=== PATIENT | female | born 1980 | race Caucasian/White ===

== ENCOUNTER 2019-11-21 06:14 | Inpatient (IN) ==
[2019-11-21] MEDS ORDERED: SODIUM CHLORIDE 0.65% NA SOLN 45 ML (OCEAN) PRN (06:16)
[2019-11-21] MEDS ORDERED: BISMUTH SUBSALICYLATE PER ML OMNICELL CHARGE PO PRN (06:16)
[2019-11-21] MEDS ORDERED: MAGNESIUM HYDROXIDE SUSP 30 ML UDC PO PRN (06:16)
[2019-11-21] MEDS ORDERED: ACETAMINOPHEN 325 MG TAB PO PRN (06:16)
[2019-11-21] MEDS ORDERED: POLYETHYLENE (MIRALAX) 17 GM PACK PO SCH (09:00)
[2019-11-21] MEDS ORDERED: CLORAZEPATE DIPOTASSIUM 3.75 MG TAB PO SCH (09:00)
[2019-11-21] MEDS: TOPIRAMATE 100 MG TAB PO SCH ×2 (12:22→21:28)
[2019-11-21] MEDS: lamoTRIgine 100 MG TAB PO SCH ×2 (12:22→21:26)
[2019-11-21] MEDS: CLORAZEPATE DIPOTASSIUM 3.75 MG TAB PO SCH ×2 (12:23→21:53)
[2019-11-21] MEDS: DOCUSATE SODIUM 100 MG CAP PO SCH ×2 (13:29→21:26)
[2019-11-21] MEDS: MAGNESIUM OXIDE 400 MG TAB PO SCH ×2 (13:30→21:28)
[2019-11-21] MEDS: ESCITALOPRAM OXALATE 20 MG TAB PO SCH (13:59)
[2019-11-21] MEDS ORDERED: POLYETHYLENE (MIRALAX) 17 GM PACK PO PRN (15:13)
[2019-11-21] MEDS: PATIENT'S ALLERGY INFO NEEDS ENTERED SCH ×2 (15:59→16:01)
[2019-11-21] MEDS: PATIENT'S HEIGHT AND/OR WEIGHT NEEDED SCH ×2 (15:59→16:00)
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
[2019-11-21] MEDS: LURASIDONE HCL 40 MG TAB PO SCH (18:07)
[2019-11-21] MEDS: CALCIUM POLYCARBOPHIL 625MG TAB PO SCH (21:26)
[2019-11-21] MEDS: PANTOprazole 40 MG TAB PO SCH (21:28)
[2019-11-21] MEDS: MONTELUKAST SODIUM 10 MG TABLET PO SCH (21:28)
[2019-11-22 08:24] LABS: Glucose Fasting 108 mg/dl (70-99)
[2019-11-22 08:31] LABS: Chol HDL Ratio 7; Cholesterol 215 mg/dl (0-200); HDL Cholesterol 29 mg/dl; LDL Cholesterol Calculated 151 mg/dl; Triglycerides 176 mg/dl (0-150); VLDL Cholesterol 35 mg/dl
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
[2019-11-22] MEDS: lamoTRIgine 100 MG TAB PO SCH ×2 (10:03→20:35)
[2019-11-22] MEDS: DOCUSATE SODIUM 100 MG CAP PO SCH ×2 (10:03→20:33)
[2019-11-22] MEDS: CALCIUM POLYCARBOPHIL 625MG TAB PO SCH ×2 (10:03→20:34)
[2019-11-22] MEDS: ESCITALOPRAM OXALATE 20 MG TAB PO SCH (10:04)
[2019-11-22] MEDS: PANTOprazole 40 MG TAB PO SCH ×2 (10:06→20:38)
[2019-11-22] MEDS: MAGNESIUM OXIDE 400 MG TAB PO SCH ×2 (10:06→20:46)
[2019-11-22] MEDS: TOPIRAMATE 100 MG TAB PO SCH ×2 (10:07→20:38)
[2019-11-22] MEDS: CLORAZEPATE DIPOTASSIUM 3.75 MG TAB PO SCH ×2 (10:08→22:14)
[2019-11-22] MEDS: CHOLECALCIFEROL 1,000 UNITS 25 MCG TAB PO SCH (10:09)
[2019-11-22] MEDS: LURASIDONE HCL 40 MG TAB PO SCH (17:17)
[2019-11-22] MEDS: MONTELUKAST SODIUM 10 MG TABLET PO SCH (20:39)
--- NOTE | 2019-11-23 09:27 | Psychiatric Progress Note ---
Date of Service November 23, 2019 Impression / Recommendations Impression 39 yo female with reported dx of bipolar disorder, mild intellectual disability, and seizures presented to outside ED with reports of command aguilar/SI/HI in the context of argument with her mother's paramour. Pt is now denying SI and HI, but admits to ongoing issues managing her depression and anxiety. Pt is not convinced at this time she would be able to maintain safety outside of the hospital setting, but does admit to some improvement in mood after attending group programming yesterday. Pt was encouraged to focus on therapy groups to develop additional coping strategies and focus on managing anger and stress. Could consider titration of lurasidone to target mood concerns; however, home medications are simply being continued at this time. Pt reports only limited routine to her days at home, and suggestion of a psychiatric day program is being made. Pt still requires a family meeting with her mother to discuss aftercare and safety planning, and there is ongoing concern for acute risk of harm to self or others if she is discharged prematurely. (1) Bipolar disorder, curr episode mixed, severe, with psychotic features: 2/--The patient was admitted to the [facility] ([facility]) on q15 min checks (behavioral with suicide precautions) for safety. The patient will participate in group, recreational, and milieu therapies and will be offered additional individual and family sessions as clinically appropriate. Appears better than expected on MSE and suspect much may be related to limiting coping in the setting of ID and chronic mental health issues. Will monitor for symptoms here to determine need for titration of Latuda. Fasting metabolic labs in am. 2/4 - Continue current medication regimen presently; continue monitor of symptoms and consider titration of Latuda as indicated - Fasting glucose and lipid panel obtained this morning - glucose elevated at 108; triglycerides elevated at 176; total cholesterol elevated at 215. LDL - 151; HDL - 27. - Encouraged patient to focus on group therapy/activity topics to learn additional ways of coping with anger and frustration - as her symptoms may be effectively addressed with behavioral modifications and consistent encouragement to utilize effective coping strategies - Will need to encourage family meeting with mother - Confirm aftercare arrangements - Initiated simethicone 80mg chew tabs as needed for reported "gas" - can follow-up with PCP on outpatient basis if necessary 2/5 - Continue current medication regimen - Encourage ongoing participation in group and recreational programming; encourage development of healthy and effective coping strategies - Need to schedule family meeting with patient's mother - Consider willingness for a psychiatric day program to improve structure and routine (2) Complex partial epilepsy: continue home meds, seizure precautions. Risk Factors Assessment Do You Have Access To A Gun?: No Interval History Identifying Information LONA AYALA is a 39-year-old F who currently lives in [place] with her mother and mother's fiance, has a history of SI and acting out behavior, and was admitted on 11/21/19 09:34 on a 201 voluntary commitment for reports of SI and command aguilar. She was transferred from ED at [facility]. Chief Complaint "[This morning] was a 10!" Review of Systems Notes Constitutional: denied Cardiovascular: denied Respiratory: denied Gastrointestinal: denied Neurological: denied Psychiatric: denies symptoms other than stated above Total of at least 10 systems reviewed, pertinent positives as above and in HPI. Sleep Information Total Hours of Sleep: 7 Sleep Comments: pt on q-15 minute checks Meal Information Percent Meal Consumed - Breakfast: 100 Percent Meal Consumed - Lunch: 100 Percent Meal Consumed - Dinner: 100 Subjective Subjective Patient was seen & assessed and interval progress reviewed with treatment team. Staff reports the patient participated in group programming yesterday. She rated her mood a 10/10 and "hopeful" last evening. Patient had also started working on her safety plan. It is recommended that the patient have a family meeting with her mother prior to discharge to discuss safety and aftercare planning. Patient was seen today to assess progress since admission. She provides verbal consent to allow Day Dawson PA-C to observe today's encounter. When asked how the morning was going, the patient states "it was a 10!" Patient was asked what made the morning so great, to which she responded "I was hopeful." Patient was asked what she felt led to this change in mood, and she admits that attending groups and thinking about her niece has been rather helpful. Patient was asked what she generally does during the day at home, and states that she will "text a little bit, go on my tablet, or sleep." Patient states that she is not currently enrolled in a psychiatric day program. 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 I think I would like that." Patient denies suicidal or homicidal ideation at this time, and was encouraged to continue attending group programming to develop healthy and effective coping strategies to deal with her emotions. Patient denies other needs or concerns at this time. Physical Exam Psychiatric Orientation: alert, oriented x 3 and cooperative (And pleasant) Apperance: appropriately dressed (Casually dressed in juvenile appearing clothing, sweater with cat face), + disheveled and appeared stated age Eye Contact: good eye contact Motor Behavior: steady gait and station and no abnormal motor movements Speech: normal rate/rhythm/volume of speech Affect: euthymic affect and mood congruent with affect Mood: no depressed mood ("[The morning] was a 10!" and "I was hopeful") Thought Process: goal directed thought process and + concrete thought process Thought Content: reality based without delusions; no hopelessness Suicidal Thoughts: denies suicidal thoughts Homicidal Thoughts: denies homicidal thoughts Hallucinations: no auditory hallucinations and no visual hallucinations Cognition: attention grossly intact and language grossly intact Estimated Intelligence: + below average estimated intelligence Insight: + limited insight Judgement: + limited judgement Vital Signs (Past 24 Hours) Last Vital Signs Temp 36.4 C L 11/23/19 06:42 Pulse 92 H 11/23/19 06:43 Resp 18 11/23/19 06:42 BP 109/73 11/23/19 06:43 Results & Data Current Inpatient Medications Current Inpatient Medications: Current Inpatient Medications Acetaminophen (Tylenol) 650 mg PO Q4H PRN PRN Reason: Headache or Minor Fever Stop: 12/21/19 06:15 Al Hydrox/Mg Hydrox/Simethicone (Maalox) 30 ml PO Q4H PRN PRN Reason: GI Upset Stop: 12/21/19 06:15 Bismuth Subsalicylate (Kaopectate) 15 ml PO PRN PRN PRN Reason: Loose Stool Stop: 12/21/19 06:15 Calcium Polycarbophil (Fibercon) 625 mg PO BID DEB Stop: 12/21/19 20:59 Last Admin: 11/22/19 20:34 Dose: 625 mg Documented by: Clorazepate Dipotassium (Tranxene-T) 15 mg PO HS DEB Stop: 12/21/19 21:59 Last Admin: 11/22/19 22:14 Dose: 15 mg Documented by: Clorazepate Dipotassium (Tranxene-T) 7.5 mg PO DAILY [facility] Stop: 12/21/19 11:44 Last Admin: 11/22/19 10:08 Dose: 7.5 mg Documented by: Docusate Sodium (Colace) 100 mg PO BID [facility] Stop: 12/21/19 08:59 Last Admin: 11/22/19 20:33 Dose: 100 mg Documented by: Escitalopram Oxalate (Lexapro Tab) 20 mg PO QAM [facility] Stop: 12/21/19 08:59 Last Admin: 11/22/19 10:04 Dose: 20 mg Documented by: Hydroxyzine HCl (Vistaril) 50 mg PO HSZ PRN PRN Reason: Insomnia Stop: 12/21/19 06:15 Hydroxyzine HCl (Vistaril) 25 mg PO Q4H PRN PRN Reason: Anxiety Stop: 12/21/19 06:15 Lamotrigine (Lamictal) 300 mg PO BID [facility] Stop: 12/21/19 11:29 Last Admin: 11/22/19 20:35 Dose: 300 mg Documented by: Lurasidone HCl (Latuda) 60 mg PO QDD [facility] Stop: 12/21/19 17:44 Last Admin: 11/22/19 17:17 Dose: 60 mg Documented by: Magnesium Hydroxide (Milk Of Magnesia) 30 ml PO DAILY PRN PRN Reason: Constipation Stop: 12/21/19 06:15 Magnesium Oxide (Mag-Ox) 400 mg PO BID [facility] Stop: 12/21/19 08:59 Last Admin: 11/22/19 20:46 Dose: 400 mg Documented by: Montelukast Sodium (Singulair) 10 mg PO HS [facility] Stop: 12/21/19 21:59 Last Admin: 11/22/19 20:39 Dose: 10 mg Documented by: Pantoprazole Sodium (Protonix) 40 mg PO BID [facility] Stop: 12/21/19 20:59 Last Admin: 11/22/19 20:38 Dose: 40 mg Documented by: Polyethylene Glycol (Miralax Powder Packet) 17 gm PO DAILY PRN PRN Reason: Constipation Stop: 12/21/19 08:59 Simethicone (Mylicon) 80 mg PO Q6H PRN PRN Reason: gas/bloating Stop: 12/22/19 09:26 Sodium Chloride ([place] Nasal) 1 - 2 sprays NA PRN PRN PRN Reason: Nasal Dryness/Congestion Stop: 12/21/19 06:15 Topiramate (Topamax) 100 mg PO BID DEB Stop: 12/21/19 11:29 Last Admin: 11/22/19 20:38 Dose: 100 mg Documented by: Vitamin D (Vitamin D3) 5,000 units PO DAILY DEB Stop: 12/22/19 08:59 Last Admin: 11/22/19 10:09 Dose: 5,000 units Documented by: Mental Health & Subst Abuse Tx Psychiatrist Name of Psychiatrist: [facility] - Dr. Hanna Psychiatrist's Date of Appointment with Psychiatrist: 01/10/20 Time of Appointment with Psychiatrist: 10:45 a.m. Psychiatric Appointment Comment: [address] [place] [id number] Therapist Name of Therapist: [facility] - Pasquale Espinal Therapist's Date of Therapist Appointment: 12/01/19 Time of Therapist Appointment: 10:00 a.m. Therapy Appointment Comment: [address] [place] [address] Post Discharge Appointments Primary Care Physician Name Of Family Doctor: [facility] - Dr. Dale Primary [facility] Date of Appointment with PCP: 12/12/19 Time of Appointment with PCP: 3:00 p.m. Provider Appointment Comment: [address] [place] [address] Contact Information Discharge [address]: [address] [place] [address], [place] [id number]
[2019-11-23] MEDS: CALCIUM POLYCARBOPHIL 625MG TAB PO SCH ×2 (09:32→21:23)
[2019-11-23] MEDS: DOCUSATE SODIUM 100 MG CAP PO SCH ×2 (09:32→21:23)
[2019-11-23] MEDS: ESCITALOPRAM OXALATE 20 MG TAB PO SCH (09:33)
[2019-11-23] MEDS: lamoTRIgine 100 MG TAB PO SCH ×2 (09:33→21:23)
[2019-11-23] MEDS: MAGNESIUM OXIDE 400 MG TAB PO SCH ×2 (09:33→21:24)
[2019-11-23] MEDS: TOPIRAMATE 100 MG TAB PO SCH ×2 (09:34→21:27)
[2019-11-23] MEDS: PANTOprazole 40 MG TAB PO SCH ×2 (09:34→21:27)
[2019-11-23] MEDS: CHOLECALCIFEROL 1,000 UNITS 25 MCG TAB PO SCH (09:34)
[2019-11-23] MEDS: CLORAZEPATE DIPOTASSIUM 3.75 MG TAB PO SCH ×2 (09:36→21:25)
[2019-11-23] MEDS: LURASIDONE HCL 40 MG TAB PO SCH (17:18)
[2019-11-23] MEDS: SIMETHICONE 80 MG CHEW PO PRN (17:19)
[2019-11-23] MEDS: MONTELUKAST SODIUM 10 MG TABLET PO SCH (21:22)
--- NOTE | 2019-11-24 09:24 | Psychiatric Progress Note ---
Date of Service November 24, 2019 Impression / Recommendations Impression 39 yo female with reported dx of bipolar disorder, mild intellectual disability, and seizures presented to outside ED with reports of command aguilar/SI/HI in the context of argument with her mother's paramour. Pt is now denying SI and HI, but admits to ongoing issues managing her depression and anxiety. Pt is not convinced at this time she would be able to maintain safety outside of the hospital setting, but does admit to some improvement in mood after attending group programming yesterday. Pt was encouraged to focus on therapy groups to develop additional coping strategies and focus on managing anger and stress. Could consider titration of lurasidone to target mood concerns; however, home medications are simply being continued at this time. Pt reports only limited routine to her days at home, and suggestion of a psychiatric day program is being made to her director of casework services. Pt still requires a family meeting with her mother to discuss aftercare and safety planning, and there is ongoing concern for acute risk of harm to self or others if she is discharged prematurely. (1) Bipolar disorder, curr episode mixed, severe, with psychotic features: 2/3--The patient was admitted to the [facility] ([facility]) on q15 min checks (behavioral with suicide precautions) for safety. The patient will participate in group, recreational, and milieu therapies and will be offered additional individual and family sessions as clinically appropriate. Appears better than expected on MSE and suspect much may be related to limiting coping in the setting of ID and chronic mental health issues. Will monitor for symptoms here to determine need for titration of Latuda. Fasting metabolic labs in am. 2/4 - Continue current medication regimen presently; continue monitor of symptoms and consider titration of Latuda as indicated - Fasting glucose and lipid panel obtained this morning - glucose elevated at 108; triglycerides elevated at 176; total cholesterol elevated at 215. LDL - 151; HDL - 27. - Encouraged patient to focus on group therapy/activity topics to learn additional ways of coping with anger and frustration - as her symptoms may be effectively addressed with behavioral modifications and consistent encouragement to utilize effective coping strategies - Will need to encourage family meeting with mother - Confirm aftercare arrangements - Initiated simethicone 80mg chew tabs as needed for reported "gas" - can follow-up with PCP on outpatient basis if necessary 2/5 - Continue current medication regimen - Encourage ongoing participation in group and recreational programming; encourage development of healthy and effective coping strategies - Need to schedule family meeting with patient's mother - Consider willingness for a psychiatric day program to improve structure and routine 11/24 - Continue treatment plan as above - discussed ways patient can better manage anger and frustration toward her mother's alisa - Family meeting scheduled with mother 11/26 at 1300 - Coordinate with director of casework services to discuss a day program or ways to provide additional daily structure (2) Complex partial epilepsy: continue home meds, seizure precautions. Risk Factors Assessment Do You Have Access To A Gun?: No Interval History Identifying Information LONA AYALA is a 39-year-old F who currently lives in [place] with her mother and mother's alisa, has a history of SI and acting out behavior, and was admitted on 11/21/19 09:34 on a 201 voluntary commitment for reports of SI and command aguilar. She was transferred from ED at [facility]. Chief Complaint "I am happy." Review of Systems Notes Constitutional: denied HEENT: now reporting nasal congestion Cardiovascular: denied Respiratory: denied Gastrointestinal: denied Neurological: denied Psychiatric: denies symptoms other than stated above Total of at least 10 systems reviewed, pertinent positives as above and in HPI. Sleep Information Total Hours of Sleep: 6.5 Sleep Comments: pt on q-15 minute checks Meal Information Percent Meal Consumed - Breakfast: 100 Percent Meal Consumed - Lunch: 100 Percent Meal Consumed - Dinner: 100 Subjective Subjective Patient was seen & assessed and interval progress reviewed with nursing and social work. Staff report the patient has been attending group programming. A family meeting has been scheduled with the patient's mother for 11/26 at 1300. Attempts were made to reach out to patient's director of casework services to coordinate care. Patient was seen today to assess progress since admission. Patient provides verbal consent to allow Day Dawson PA-C to observe today's encounter. Patient states "I am happy." She states that she continues to benefit from attending groups, and states she is planning to "try to go upstairs to a different room when [mother's alisa] is around, so I do not have to be alone with him." Patient states she is somewhat frustrated as her mother's beltran will be coming to pick her up this weekend. This provider took the opportunity to encourage patient to have a supervised conversation with her mother's beltran regarding ways that they can better handle their interactions with 1 another. Patient was encouraged to share her coping strategies with him, and provide an explanation of what she finds will be most helpful during moment she is frustrated with him. This provider encouraged that patient remain respectful of her mother's fianc, as he is responsible for safety within the household; however, encourage that they have open communication about the way patient plans to handle her anger differently. Patient continues to deny suicidal and homicidal ideation. She is reporting nasal congestion and is requesting medication for "a cold" that she states she has had for the past month. Otherwise, she denies any needs or hortencia rns today. Physical Exam Psychiatric Orientation: alert and cooperative (And pleasant) Apperance: appropriately dressed (But wearing same clothes for several days) and + disheveled; + inappropriately groomed (Hair is oily, unkempt.) Eye Contact: good eye contact Motor Behavior: steady gait and station and no abnormal motor movements Speech: normal rate/rhythm/volume of speech Affect: euthymic affect and mood congruent with affect Mood: no depressed mood ("I am happy") Thought Process: goal directed thought process and + concrete thought process Thought Content: reality based without delusions; no hopelessness Suicidal Thoughts: denies suicidal thoughts and denies suicidal intent Homicidal Thoughts: denies homicidal thoughts Hallucinations: no auditory hallucinations and no visual hallucinations Estimated Intelligence: + below average estimated intelligence Insight: + limited insight (overall, though seemingly improved as it relates to better managing anger) Judgement: + limited judgement Vital Signs (Past 24 Hours) Last Vital Signs Temp 36.8 C 11/24/19 06:50 Pulse 100 H 11/24/19 06:50 Resp 18 11/24/19 06:50 BP 110/74 11/24/19 06:50 Results & Data Current Inpatient Medications Current Inpatient Medications: Current Inpatient Medications Acetaminophen (Tylenol) 650 mg PO Q4H PRN PRN Reason: Headache or Minor Fever Stop: 12/21/19 06:15 Al Hydrox/Mg Hydrox/Simethicone (Maalox) 30 ml PO Q4H PRN PRN Reason: GI Upset Stop: 12/21/19 06:15 Bismuth Subsalicylate (Kaopectate) 15 ml PO PRN PRN PRN Reason: Loose Stool Stop: 12/21/19 06:15 Calcium Polycarbophil (Fibercon) 625 mg PO BID [facility] Stop: 12/21/19 20:59 Last Admin: 11/23/19 21:23 Dose: 625 mg Documented by: Clorazepate Dipotassium (Tranxene-T) 15 mg PO HS [facility] Stop: 12/21/19 21:59 Last Admin: 11/23/19 21:25 Dose: 15 mg Documented by: Clorazepate Dipotassium (Tranxene-T) 7.5 mg PO DAILY [facility] Stop: 12/21/19 11:44 Last Admin: 11/23/19 09:36 Dose: 7.5 mg Documented by: Docusate Sodium (Colace) 100 mg PO BID [facility] Stop: 12/21/19 08:59 Last Admin: 11/23/19 21:23 Dose: 100 mg Documented by: Escitalopram Oxalate (Lexapro Tab) 20 mg PO QAM [facility] Stop: 12/21/19 08:59 Last Admin: 11/23/19 09:33 Dose: 20 mg Documented by: Hydroxyzine HCl (Vistaril) 50 mg PO HSZ PRN PRN Reason: Insomnia Stop: 12/21/19 06:15 Hydroxyzine HCl (Vistaril) 25 mg PO Q4H PRN PRN Reason: Anxiety Stop: 12/21/19 06:15 Lamotrigine (Lamictal) 300 mg PO BID [facility] Stop: 12/21/19 11:29 Last Admin: 11/23/19 21:23 Dose: 300 mg Documented by: Lurasidone HCl (Latuda) 60 mg PO QDD [facility] Stop: 12/21/19 17:44 Last Admin: 11/23/19 17:18 Dose: 60 mg Documented by: Magnesium Hydroxide (Milk Of Magnesia) 30 ml PO DAILY PRN PRN Reason: Constipation Stop: 12/21/19 06:15 Magnesium Oxide (Mag-Ox) 400 mg PO BID [facility] Stop: 12/21/19 08:59 Last Admin: 11/23/19 21:24 Dose: 400 mg Documented by: Montelukast Sodium (Singulair) 10 mg PO HS [facility] Stop: 12/21/19 21:59 Last Admin: 11/23/19 21:22 Dose: 10 mg Documented by: Pantoprazole Sodium (Protonix) 40 mg PO BID [facility] Stop: 12/21/19 20:59 Last Admin: 11/23/19 21:27 Dose: 40 mg Documented by: Polyethylene Glycol (Miralax Powder Packet) 17 gm PO DAILY PRN PRN Reason: Constipation Stop: 12/21/19 08:59 Simethicone (Mylicon) 80 mg PO Q6H PRN PRN Reason: gas/bloating Stop: 12/22/19 09:26 Last Admin: 11/23/19 17:19 Dose: 80 mg Documented by: Sodium Chloride ([place] Nasal) 1 - 2 sprays NA PRN PRN PRN Reason: Nasal Dryness/Congestion Stop: 12/21/19 06:15 Topiramate (Topamax) 100 mg PO BID [facility] Stop: 12/21/19 11:29 Last Admin: 11/23/19 21:27 Dose: 100 mg Documented by: Vitamin D (Vitamin D3) 5,000 units PO DAILY [facility] Stop: 12/22/19 08:59 Last Admin: 11/23/19 09:34 Dose: 5,000 units Documented by: Mental Health & Subst Abuse Tx Psychiatrist Name of Psychiatrist: [facility] - Dr. Hanna Psychiatrist's Date of Appointment with Psychiatrist: 01/10/20 Time of Appointment with Psychiatrist: 10:45 a.m. Psychiatric Appointment Comment: [address] [place] [address] Therapist Name of Therapist: [facility] Pasquale Espinal Therapist's Date of Therapist Appointment: 12/01/19 Time of Therapist Appointment: 10:00 a.m. Therapy Appointment Comment: [address] [place] [address] [employer]her [employer] Machine Operator Name of Washer And Capper Machine Operator: Peggy Merrill Phone Number for Washer And Capper Machine Operator: [phone] Post Discharge Appointments Primary Care Physician Name Of Family Doctor: [facility] - Dr. Dale Primary [facility] Date of Appointment with PCP: 12/12/19 Time of Appointment with PCP: 3:00 p.m. Provider Appointment Comment: [address] [place] [address] Contact Information Discharge Address: [address] [place], [place] [address], [place] [address]
[2019-11-24] MEDS: DOCUSATE SODIUM 100 MG CAP PO SCH ×2 (09:34→21:08)
[2019-11-24] MEDS: lamoTRIgine 100 MG TAB PO SCH ×2 (09:35→21:09)
[2019-11-24] MEDS: CALCIUM POLYCARBOPHIL 625MG TAB PO SCH ×2 (09:35→21:08)
[2019-11-24] MEDS: MAGNESIUM OXIDE 400 MG TAB PO SCH ×2 (09:35→21:09)
[2019-11-24] MEDS: ESCITALOPRAM OXALATE 20 MG TAB PO SCH (09:35)
[2019-11-24] MEDS: CLORAZEPATE DIPOTASSIUM 3.75 MG TAB PO SCH (09:36)
[2019-11-24] MEDS: PANTOprazole 40 MG TAB PO SCH ×2 (09:36→21:10)
[2019-11-24] MEDS: TOPIRAMATE 100 MG TAB PO SCH ×2 (09:36→21:10)
[2019-11-24] MEDS: CHOLECALCIFEROL 1,000 UNITS 25 MCG TAB PO SCH (09:36)
[2019-11-24] MEDS: SIMETHICONE 80 MG CHEW PO PRN ×2 (11:05→17:13)
[2019-11-24] MEDS: ALUMINUM/MAGNESIUM SUSP 30 ML UDC PO PRN (13:12)
[2019-11-24] MEDS: PSEUDOEPHEDRINE HCL 30 MG TAB PO PRN (13:12)
[2019-11-24] MEDS: LURASIDONE HCL 40 MG TAB PO SCH (17:14)
[2019-11-24] MEDS: MONTELUKAST SODIUM 10 MG TABLET PO SCH (21:11)
[2019-11-25] MEDS: CLORAZEPATE DIPOTASSIUM 3.75 MG TAB PO SCH ×3 (00:44→20:57)
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
[2019-11-25] MEDS: CALCIUM POLYCARBOPHIL 625MG TAB PO SCH ×2 (09:48→20:55)
[2019-11-25] MEDS: ESCITALOPRAM OXALATE 20 MG TAB PO SCH (09:48)
[2019-11-25] MEDS: CHOLECALCIFEROL 1,000 UNITS 25 MCG TAB PO SCH (09:48)
[2019-11-25] MEDS: lamoTRIgine 100 MG TAB PO SCH ×2 (09:48→20:55)
[2019-11-25] MEDS: DOCUSATE SODIUM 100 MG CAP PO SCH ×2 (09:48→20:54)
[2019-11-25] MEDS: MAGNESIUM OXIDE 400 MG TAB PO SCH ×2 (09:49→20:56)
[2019-11-25] MEDS: PANTOprazole 40 MG TAB PO SCH ×2 (09:49→20:56)
[2019-11-25] MEDS: TOPIRAMATE 100 MG TAB PO SCH ×2 (09:49→20:56)
[2019-11-25] MEDS: ALUMINUM/MAGNESIUM SUSP 30 ML UDC PO PRN (09:55)
[2019-11-25] MEDS ORDERED: ONDANSETRON 4 MG OD TAB PO PRN (10:08)
[2019-11-25] MEDS: PSEUDOEPHEDRINE HCL 30 MG TAB PO PRN ×2 (10:38→18:54)
[2019-11-25] MEDS: SIMETHICONE 80 MG CHEW PO PRN ×2 (10:38→18:53)
[2019-11-25] MEDS: LURASIDONE HCL 40 MG TAB PO SCH (17:16)
[2019-11-25] MEDS: MONTELUKAST SODIUM 10 MG TABLET PO SCH (20:57)
[2019-11-26] MEDS: MAGNESIUM OXIDE 400 MG TAB PO SCH (08:11)
[2019-11-26] MEDS: CHOLECALCIFEROL 1,000 UNITS 25 MCG TAB PO SCH (08:11)
[2019-11-26] MEDS: PANTOprazole 40 MG TAB PO SCH (08:11)
[2019-11-26] MEDS: TOPIRAMATE 100 MG TAB PO SCH (08:12)
[2019-11-26] MEDS: CALCIUM POLYCARBOPHIL 625MG TAB PO SCH (08:12)
[2019-11-26] MEDS: ESCITALOPRAM OXALATE 20 MG TAB PO SCH (08:12)
[2019-11-26] MEDS: lamoTRIgine 100 MG TAB PO SCH (08:12)
[2019-11-26] MEDS: DOCUSATE SODIUM 100 MG CAP PO SCH (08:12)
[2019-11-26] MEDS: CLORAZEPATE DIPOTASSIUM 3.75 MG TAB PO SCH (08:30)
[2019-11-26] MEDS: PSEUDOEPHEDRINE HCL 30 MG TAB PO PRN (08:31)
[2019-11-26] MEDS: ALUMINUM/MAGNESIUM SUSP 30 ML UDC PO PRN (09:18)
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
== END 2019-11-26 15:00 | disposition home health service (06) | DRG 885 ==
LOC: SUATTDRO 09:34 → 3S 09:34